=== PATIENT | female | born 1975 | race Caucasian/White ===

== ENCOUNTER 2017-04-29 16:43 | Emergency (ER) | payer OTHER ==
[2017-04-29 17:00] VITALS: BP 128/83; PULSE 89; TEMP 97.8; BMI 28.0
--- NOTE | 2017-04-29 17:58 | PDOC ---
History of Present Illness - General Chief Complaint: Vaginal Bleeding Stated Complaint: VAGINAL BLEED Time Seen by Provider: 04/29/17 17:40 History Source: Patient Exam Limitations: No Limitations - History of Present Illness Travel History: No Initial Comments: 04/29/17 18:08 41-year-old female presents the ED with complaints of vaginal bleeding since Friday. Patient states is currently 9 weeks had went to [facility] who performed an ultrasound stating she had a gestational sac with no heart rate. Patient was told to follow-up with her V[employer]AP [employer]ONER or go to the nearest ER for repeat blood work and ultrasound. Patient states minimal suprapubic cramping but states bleeding has continued without passage of large clots. Patient also denies back pain, nausea vomiting weakness or dizziness. Timing/Duration: reports: constant Quality: reports: mild, cramping Abdominal Pain Onset Location: reports: suprapubic Pain Radiation: reports: no radiation Activities at Onset: reports: none Aggravating Factors: improves with: None Alleviating Factors: improves with: None Past History - Travel Traveled outside of the country in the last 30 days: No - Past Medical History Allergies/Adverse Reactions: Allergies Allergy/AdvReac Type Severity Reaction Status Date / Time No Known Allergies Allergy Verified 04/29/17 17:00 Home Medications: Ambulatory Orders NK [No Known Home Medication] 04/29/17 COPD: No Other medical history: legally blind, - Reproductive History Is Patient Now?: Yes - Suicide/Smoking/Psychosocial Hx Smoking History: Never smoked Have you smoked in the past 12 months: No Information on smoking cessation initiated: No Hx Alcohol Use: No Drug/Substance Use Hx: No Substance Use Type: None Patient Lives Alone: No Lives with/in: spouse/SO Review of Systems - Review of Systems Able to Perform ROS?: No Constitutional: No: Symptoms Reported HEENTM: No: Symptoms Reported Respiratory: No: Symptoms reported Cardiac (ROS): No: Symptoms Reported ABD/GI: Yes: Abdominal cramping : Yes: Discharge (vaginal bleeding) Musculoskeletal: No: Symptoms Reported Integumentary: No: Symptoms Reported Neurological: No: Symptoms reported Hematologic/Lymphatic: No: Symptoms Reported *Physical Exam - Vital Signs Last Vital Signs Temp Pulse Resp BP Pulse Ox 97.8 F 89 18 128/83 100 04/29/17 16:45 04/29/17 16:45 04/29/17 16:45 04/29/17 16:45 04/29/17 16:45 - Physical Exam General Appearance: Yes: Nourished, Appropriately Dressed. No: Apparent Distress HEENT: negative: Pale Conjunctivae Female Pelvic Exam: positive: vaginal bleeding (bright red , no clots) Gastrointestinal/Abdominal: positive: Normal Bowel Sounds, Soft, Tenderness ( midsuprapubic). negative: Distended Integumentary: positive: Normal Color, Warm, Moist Neurologic: positive: Motor Strength 5/5 (ambulatory) Medical Decision Making - Medical Decision Making 04/29/17 18:15 Patient here for repeat ultrasound and lab work secondary to no heart rate and gestational age does not correlate with LMP. Patient exam did have bright red blood without clots with mild mid suprapubic tenderness. Patient ordered for beta hCG, CBC, type and screen, comp and urinalysis urine culture along with ultrasound. *DC/Admit/Observation/Transfer - Referrals Referrals: Megan Danielle [Primary Care Provider] - - Patient Instructions - Post Discharge Activity
[2017-04-29 18:21] LABS: BASO % 0.7 % (0-2.0); EOS % 1.3 % (0-4.5); HEMATOCRIT 40.2 % (32.4-45.2); HEMOGLOBIN 13.7 GM/dL (10.7-15.3); LYMPH % 20.6 % (8-40); MCH 29.5 pg (25.7-33.7); MCHC 34.1 g/dl (32.0-36.0); MEAN CELL VOLUME 86.6 fl (80-96); MEAN PLT VOLUME 7.1 fl (7.5-11.1); MONO % 5.8 % (3.8-10.2); NEUT % 71.6 % (42.8-82.8); PLATELET COUNT 380 K/MM3 (134-434); RBC 4.64 M/mm3 (3.60-5.2); RDW 13.4 % (11.6-15.6); WHITE BLOOD COUNT 8.6 K/mm3 (4.0-10.0)
[2017-04-29 18:25] LABS: URINE APPEARANCE CLEAR; URINE BILIRUBIN NEGATIVE (NEGATIVE); URINE BLOOD 3+ (NEGATIVE); URINE COLOR YELLOW; URINE GLUCOSE (UA) NEGATIVE (NEGATIVE); URINE KETONE TRACE (NEGATIVE); URINE LEUK ESTERASE NEGATIVE (NEGATIVE); URINE NITRITE NEGATIVE (NEGATIVE); URINE PROTEIN NEGATIVE (NEGATIVE)
[2017-04-29 18:49] LABS: ALBUMIN 3.8 g/dl (3.4-5.0); ALK PHOS 81 U/L (45-117); ANION GAP 9 (8-16); BILIRUBIN,TOTAL 0.7 mg/dL (0.2-1.0); BLOOD UREA NITROGEN 9 mg/dL (7-18); CALCIUM 8.7 mg/dL (8.5-10.1); CHLORIDE 102 mmol/L (98-107); CO2 26 mmol/L (21-32); CREATININE 0.4 mg/dL (0.55-1.02); GLUCOSE,RANDOM 87 mg/dL (74-106); SGOT/AST 15 U/L (15-37); SGPT/ALT 18 U/L (12-78); SODIUM 137 mmol/L (136-145); TOT PROT 7.5 g/dl (6.4-8.2)
[2017-04-29 19:19] LABS: EPI CELLS RARE /HPF (FEW); URINE MUCUS FEW
--- NOTE | 2017-04-29 19:42 | PDOC ---
ED Treatment Course - LABORATORY CBC & Chemistry Diagram: 04/29/17 17:55 04/29/17 17:55 - ADDITIONAL ORDERS Additional order review: Laboratory Results 04/29/17 04/29/17 17:55 17:55 Sodium 137 Potassium 4.0 Chloride 102 Carbon Dioxide 26 Anion Gap 9 BUN 9 Creatinine 0.4 L Creat Clearance w eGFR > 60 Random Glucose 87 Calcium 8.7 Total Bilirubin 0.7 AST 15 ALT 18 Alkaline Phosphatase 81 Total Protein 7.5 Albumin 3.8 Beta HCG, Quant 8844.8 Urine Color Yellow Urine Appearance Clear Urine pH 6.0 Ur Specific [place] 1.027 Urine Protein Negative Urine Glucose (UA) Negative Urine Ketones Trace H Urine Blood 3+ H Urine Nitrite Negative Urine Bilirubin Negative Urine Urobilinogen 2.0 H Ur Leukocyte Esterase Negative Urine WBC (Auto) 2 Urine RBC (Auto) 404 Ur Epithelial Cells Rare Urine Mucus Few 04/29/17 17:55 RBC 4.64 MCV 86.6 MCHC 34.1 RDW 13.4 MPV 7.1 L Neutrophils % 71.6 Lymphocytes % 20.6 Monocytes % 5.8 Eosinophils % 1.3 Basophils % 0.7 Progress Note - Progress Note Progress Note: I have received report from JESUS Singh regarding this patient. Pt's initial chief complaint: vaginal bleed 9 weeks Pt's work up completed prior to sign out: labs, UA Pt treatment given from prior staff: none Pt plan to be completed: awaiting ultrasound Dispo: Pending Medical Decision Making - Medical Decision Making A/P: 41 y/o afebrile female, approximately 9 week female c/o vaginal bleeding since friday. Patient had an ultrasound 2 days ago and there was a gestational sac without heart rate. Patient is here for mild suprapubic cramping and repeat ultrasound. Labs results. Beta hcg = 8800. Awaiting ultrasound. blood type is O+ ultrasound IMPRESSION: Embryonic demise. Gave the patient the results. Informed her that she will most likely continue to have vaginal bleeding. Suggested she f/u with her SENIOR INSTRUCTOR tomorrow and return to the ER with any worsening or concerning symptoms. The patient verbalizes understanding of all instructions, has no further questions and is awaiting discharge. *DC/Admit/Observation/Transfer Diagnosis at time of Disposition: Embryonic demise - Discharge Dispostion Disposition: HOME Condition at time of disposition: Stable - Referrals Referrals: Megan Danielle [Primary Care Provider] - - Patient Instructions Printed Discharge Instructions: DI for Miscarriage Additional Instructions: Discharge Instructions: -Your ultrasound shows that you are most likely miscarrying. -Please take Tylenol for pain if needed -Follow up with your SENIOR INSTRUCTOR by the end of the week -Return to the ER with any worsening or concerning symptoms - Post Discharge Activity
[2017-04-29] MEDS ORDERED: ACETAMINOPHEN 325 MG TABLET (FP) PO ONE (22:57)
[2017-04-29] MEDS ORDERED: ACETAMINOPHEN 325 MG TABLET (FP) ONE (23:22)
== END 2017-04-29 23:35 | disposition home or self-care (01) ==
LOC: JER 16:43
DX: O02.1 Missed abortion (principal); Z3A.09 9 weeks gestation of pregnancy
CPT/HCPCS: 36415; 76801-TC; 80053; 81003; 81015; 84702; 85025; 86850; 86900; 86901; 87086; 99283-25

== ENCOUNTER 2018-12-29 09:27 | Day surgery (SDC) | payer OTHER ==
[2018-12-28 15:27] VITALS: BMI 29.7
[2018-12-29 11:22] VITALS: TEMP 97.8
[2018-12-29 11:27] VITALS: PULSE 66
[2018-12-29 12:24] VITALS: BP 118/66
== END 2018-12-29 12:05 | disposition home or self-care (01) ==
LOC: JASU-ENDO 09:27
PROVIDERS: ATTEND Internal Medicine Gastroenterology
PROC: 0DJD8ZZ Inspection of Lower Intestinal Tract, Via Natural or Artificial Opening Endoscopic (ICD-10-PCS; principal; 2018-12-29 10:30)
DX: R10.9 Unspecified abdominal pain (principal); K59.00 Constipation, unspecified
CPT/HCPCS: 84703